=== PATIENT | female | born 1985 | race Caucasian/White ===

== ENCOUNTER → 2023-07-30 | Outpatient (CLI) | payer OTHER | END | disposition home or self-care (01) | LOC: RADMN 08:01 | PROVIDERS: ATTEND Chiropractor | DX: M84.40XA Pathological fracture, unspecified site, initial encounter for fracture (principal); M50.322 Other cervical disc degeneration at C5-C6 level; M19.072 Primary osteoarthritis, left ankle and foot; M77.32 Calcaneal spur, left foot; M25.78 Osteophyte, vertebrae; X58.XXXA Exposure to other specified factors, initial encounter; Y93.89 Activity, other specified; Y92.89 Other specified places as the place of occurrence of the external cause; Y99.8 Other external cause status | CPT/HCPCS: 72040; 73610-TC ==